=== PATIENT | male | born 1975 | race Caucasian/White ===

== ENCOUNTER 2017-09-28 21:57 | Emergency (ER) | payer BC ==
[2017-09-28 22:03] VITALS: BP 138/94
[2017-09-28] MEDS ORDERED: Tetracaine HCl/PF 0.5% 4 ML Bottle EYELF ONE (22:44)
[2017-09-28] MEDS ORDERED: Fluorescein 1 MG Ophth Strip EYELF ONE (22:45)
--- NOTE | 2017-09-28 22:54 | EDM.PDOC ---
ED HPI GENERAL MEDICAL PROBLEM - General Chief Complaint: Eye Problems Stated Complaint: piece of wood in the L eye Time Seen by Provider: 09/28/17 22:40 Source of Information: Reports: Patient History Limitations: Reports: No Limitations - History of Present Illness INITIAL COMMENTS - FREE TEXT/NARRATIVE: Siddhartha is a 42 year old male who presents to the ED with c/o foreign body in his left eye. He reports he was pulling tack for carpet when one slipped and hit him in the eye. He feels like he got a tiny piece of wood stuck in his eye. He reports he thought he saw something in the left lower corner of his eye. He denies any vision loss or changes in visual acuity. He reports his left eye is red and irritated. Denies any other issues. Onset: Today, Sudden Onset Date: 09/28/17 Onset Time: 21:30 Location: Reports: Other (left eye) Associated Symptoms: Reports: No Other Symptoms. Denies: Confusion, Chest Pain , Cough, cough w sputum, Diaphoresis, Fever/Chills, Headaches, Loss of Appetite , Malaise, Nausea/Vomiting, Rash, Seizure, Shortness of Breath, Syncope, Weakness Left Eye Pain Score (Numeric/FACES): 0 - Related Data Allergies Allergy/AdvReac Type Severity Reaction Status Date / Time acetaminophen Allergy Itching Verified 09/28/17 21:58 [From Darvocet-N] propoxyphene napsylate Allergy Itching Verified 09/28/17 21:58 [From Darvocet-N] venom-honey bee Allergy Anaphylactic Verified 09/28/17 21:58 [bee venom (honey bee)] Shock Sulfa (Sulfonamide AdvReac Stomach Verified 09/28/17 21:58 Antibiotics) Upset Home Meds: Home Meds Lisinopril 10 mg PO DAILY 03/14/15 [History] Sertraline HCl 50 mg PO DAILY 03/14/15 [History] Simvastatin 20 mg PO DAILY 03/14/15 [History] Past Medical History HEENT History: Reports: Hard of Hearing Cardiovascular History: Reports: High Cholesterol, Hypertension Respiratory History: Reports: None Gastrointestinal History: Reports: None Genitourinary History: Reports: None Musculoskeletal History: Reports: None Neurological History: Reports: None Psychiatric History: Reports: None Endocrine/Metabolic History: Reports: Diabetes, Type II, Hypothyroidism Immunologic History: Reports: None Oncologic (Cancer) History: Reports: None Dermatologic History: Reports: None - Past Surgical History Head Surgeries/Procedures: Reports: None HEENT Surgical History: Reports: Other (See Below) Other HEENT Surgeries/Procedures: tubes in the ears, cleft lip repair Cardiovascular Surgical History: Reports: None Respiratory Surgical History: Reports: None GI Surgical History: Reports: Cholecystectomy, Colonoscopy, Other (See Below) Other GI Surgeries/Procedures: spleenectomy Male Surgical History: Reports: None Endocrine Surgical History: Reports: Thyroidectomy Musculoskeletal Surgical History: Reports: Other (See Below) Other Musculoskeletal Surgeries/Procedures:: L ACL repair Oncologic Surgical History: Reports: None Dermatological Surgical History: Reports: None Social & Family History - Tobacco Use Smoking Status *Q: Never Smoker - Caffeine Use Caffeine Use: Reports: None ED ROS GENERAL - Review of Systems Review Of Systems: ROS reveals no pertinent complaints other than HPI. ED EXAM GENERAL W FULL EYE - Physical Exam Exam: See Below Exam Limited By: No Limitations General Appearance: Alert, WD/WN, No Apparent Distress Eye Exam: Left Eye: Conjunctival Injection, Corneal Abrasion, Bilateral Eye: EOMI, PERRL Eyelids: Bilateral: Normal Appearance Conjunctiva & Sclera: Right: Normal Appearance, Left: Conjunctival Edema, Injected Cornea Exam: Right: Normal Appearance, Left: Corneal Abrasion, Examined with Flourescein Extraocular Movements: Bilateral: Intact Pupils: Normal Accommodation Pupillary Size: Bilateral: 4 mm Pupillary Reaction: Bilateral: Brisk Anterior Chamber: Bilateral: Normal Appearance Posterior Chamber: Bilateral: Normal Funduscopic Psychiatric: Normal Affect, Normal Mood Course - Vital Signs Last Recorded V/S: Last Vital Signs Temp 98.4 F 09/28/17 22:00 Pulse 80 09/28/17 22:00 Resp 18 09/28/17 22:00 BP 138/94 H 09/28/17 22:00 Pulse Ox - Orders/Labs/Meds Meds: Medications Discontinued Medications Generic Name Dose Route Start Last Admin Trade Name Freq PRN Reason Stop Dose Admin Fluorescein Sodium 1 mg 09/28/17 22:45 Ful-Stephanie EYELF 09/28/17 22:46 ONETIME ONE Tetracaine HCl 1 ml 09/28/17 22:44 Tetracaine 0.5% Steri-Unit Anastacia EYELF 09/28/17 22:45 ASDIRECTED ONE - Re-Assessments/Exams Free Text/Narrative Re-Assessment/Exam: Tetracycline drop and Ful Glow strip applied to eye. Visualized under blue light. No obvious foreign body visualized. Does have erythema and swelling to left lateral conjunctiva. Patient tolerated well. Departure - Departure Time of Disposition: 22:49 Disposition: Home, Self-Care 01 Condition: Good Clinical Impression: Corneal abrasion Qualifiers: Encounter type: initial encounter Laterality: left Qualified Code(s): S05.02XA - Injury of conjunctiva and corneal abrasion without foreign body, left eye, initial encounter - Discharge Information Instructions: Eye Foreign Body, [id number], Corneal Abrasion, [id number] Referrals: Ishan Pruitt MD [Primary Care Provider] - Additional Instructions: Eye drops every 8 hours Do not itch/rub eye as this can worsen abrasion Safety goggles while working Follow up with magnetic tape winder Sunday
[2017-09-29] MEDS ORDERED: Gentamicin 0.3% Ophth Soln 5 ML Bottle EYELF SCH (08:00)
[2017-09-29] MEDS ORDERED: Bacitracin/Neomycin/Polymyxin B Ophth Oint 3.5 GM Tube EYELF SCH ×2 (08:00)
== END 2017-09-28 23:03 | disposition home or self-care (01) ==
LOC: CC.ED 21:57
DX: S05.02XA Injury of conjunctiva and corneal abrasion without foreign body, left eye, initial encounter (principal); E78.00 Pure hypercholesterolemia, unspecified; I10 Essential (primary) hypertension; E11.9 Type 2 diabetes mellitus without complications; E03.9 Hypothyroidism, unspecified; Z88.6 Allergy status to analgesic agent; Z88.2 Allergy status to sulfonamides; Z91.030 Bee allergy status; Z79.899 Other long term (current) drug therapy; W22.8XXA Striking against or struck by other objects, initial encounter
CPT/HCPCS: 99282

== ENCOUNTER 2018-07-15 14:40 | Observation (INO) | payer BC ==
[2018-07-15 15:11] LABS: CHLORIDE,CL 102 mEq/L (98-106); SODIUM,NA 140 mEq/L (136-145)
[2018-07-15] MEDS ORDERED: Ondansetron 4 MG/2 ML SDV IV PRN (15:39)
[2018-07-15] MEDS ORDERED: Ondansetron 8 MG in Sodium Chloride 0.9% 50 ML IV PRN (15:59)
[2018-07-15] MEDS ORDERED: Ibuprofen 200 MG Tab PO PRN (16:31)
[2018-07-15] MEDS: Acetaminophen 325 MG Tab PO PRN ×2 (16:36→22:31)
[2018-07-15] MEDS: Pantoprazole 40 MG Vial IVPUSH SCH (16:37)
[2018-07-15] MEDS: Enoxaparin 40 MG/0.4 ML Syringe SUBCUT SCH (16:37)
[2018-07-15] MEDS: Sodium Chloride 0.9% 1,000 ML IV SCH ×2 (16:38→20:04)
[2018-07-15] MEDS: Ibuprofen 200 MG Tab PO PRN (20:02)
[2018-07-15] MEDS: Levofloxacin/Dextrose 5%-Water 500 MG in Premix Bag 1 BAG IV SCH (23:45)
[2018-07-16] MEDS: Pantoprazole 40 MG Vial IVPUSH SCH ×2 (04:14→15:38)
[2018-07-16] MEDS: Sodium Chloride 0.9% 1,000 ML IV SCH ×3 (05:43→21:40)
[2018-07-16] MEDS ORDERED: SERTRALINE HCL 50 MG PO SCH (08:00)
[2018-07-16 09:02] LABS: CHLORIDE,CL 107 mEq/L (98-106); SODIUM,NA 142 mEq/L (136-145)
[2018-07-16] MEDS: LEVOTHYROXINE SODIUM 200 MCG PO SCH (09:33)
[2018-07-16] MEDS: LEVOTHYROXINE SODIUM 25 MCG PO SCH (09:34)
[2018-07-16] MEDS: Enoxaparin 40 MG/0.4 ML Syringe SUBCUT SCH (15:38)
[2018-07-16] MEDS: Ibuprofen 200 MG Tab PO PRN (15:47)
--- NOTE | 2018-07-16 19:56 | PCM.PN ---
- General Info Date of Service: 07/16/18 Admission Dx/Problem (Free Text): Fever Functional Status: Reports: Pain Controlled, Tolerating Diet, Ambulating - Review of Systems General: Reports: Fever, Weakness, Fatigue, Malaise (Does feel much less achy today) HEENT: Denies: Ear Pain, Sinus Congestion, Sore Throat Pulmonary: Denies: Shortness of Breath, Cough Cardiovascular: Denies: Chest Pain, Edema, Lightheadedness Gastrointestinal: Reports: Abdominal Pain, Diarrhea (less frequent stools). Denies: Nausea, Vomiting Genitourinary: Reports: No Symptoms Musculoskeletal: Reports: No Symptoms Skin: Reports: No Symptoms Neurological: Reports: No Symptoms - Patient Data Vitals - Most Recent: Last Vital Signs Temp 100.3 F 07/16/18 16:47 Pulse 80 07/16/18 15:54 Resp 20 07/16/18 15:54 BP 143/80 H 07/16/18 15:54 Pulse Ox 96 07/16/18 15:54 Weight - Most Recent: 282 lb 6.4 oz I&O - Last 24 Hours: Intake & Output 07/16/18 07/16/18 07/16/18 06:59 14:59 22:59 Intake Total 2200 983 900 Output Total 750 1050 Balance 1450 983 -150 Lab Results Last 24 Hours: Laboratory Results - last 24 hr 07/15/18 07/16/18 07/16/18 Range/Units 21:16 06:53 07:00 WBC (5.0-10.0) 10^3/uL RBC (4.50-6.00) 10^6/uL Hgb (14.0-18.0) g/dL Hct (40.0-54.0) % MCV (82.0-94.0) fL MCH (27.0-32.0) pg MCHC (33.0-38.0) g/dL RDW Coeff of Darshana (11.0-15.0) % Plt Count (150-400) 10^3/uL Neut % (Auto) (35-85) % Lymph % (Auto) (10-55) % [place] % (Auto) (0-16) % Eos % (Auto) (0-5) % Baso % (Auto) (0-3) % Neut # (Auto) (1.80-7.00) 10^3/uL Lymph # (Auto) (1.00-4.80) 10^3/uL [place] # (Auto) (0.00-0.80) 10^3/uL Eos # (Auto) (0.00-0.45) 10^3/uL Baso # (Auto) 10^3/uL Sodium 142 (136-145) mEq/L Potassium 3.7 (3.5-5.0) mEq/L Chloride 107 H (98-106) mEq/L Carbon Dioxide 28 (21-32) mmol/L BUN 14 (7-18) mg/dL Creatinine 0.9 (0.7-1.3) mg/dL Est Cr Clr Drug Dosing 111.53 mL/min Estimated GFR (MDRD) > 60 (>=60) mL/min Glucose 110 H (75-99) mg/dL POC Glucose 92 (75-105) mg/dl Calcium 8.0 L (8.4-10.1) mg/dL Troponin I < 0.017 (0.00-0.06) ng/mL C-Reactive Protein 4.9 H (0.2-0.8) mg/dL 07/16/18 07/16/18 07/16/18 Range/Units 07:40 08:50 11:34 WBC 6.0 (5.0-10.0) 10^3/uL RBC 4.54 (4.50-6.00) 10^6/uL Hgb 13.3 L (14.0-18.0) g/dL Hct 41.2 (40.0-54.0) % MCV 90.7 (82.0-94.0) fL MCH 29.3 (27.0-32.0) pg MCHC 32.3 L (33.0-38.0) g/dL RDW Coeff of Darshana 13.7 (11.0-15.0) % Plt Count 215 (150-400) 10^3/uL Neut % (Auto) 36.9 (35-85) % Lymph % (Auto) 46.3 (10-55) % [place] % (Auto) 15.7 (0-16) % Eos % (Auto) 0.8 (0-5) % Baso % (Auto) 0.3 (0-3) % Neut # (Auto) 2.21 (1.80-7.00) 10^3/uL Lymph # (Auto) 2.78 (1.00-4.80) 10^3/uL [place] # (Auto) 0.94 H (0.00-0.80) 10^3/uL Eos # (Auto) 0.05 (0.00-0.45) 10^3/uL Baso # (Auto) 0.02 10^3/uL Sodium (136-145) mEq/L Potassium (3.5-5.0) mEq/L Chloride (98-106) mEq/L Carbon Dioxide (21-32) mmol/L BUN (7-18) mg/dL Creatinine (0.7-1.3) mg/dL Est Cr Clr Drug Dosing mL/min Estimated GFR (MDRD) (>=60) mL/min Glucose (75-99) mg/dL POC Glucose 109 H 125 H (75-105) mg/dl Calcium (8.4-10.1) mg/dL Troponin I (0.00-0.06) ng/mL C-Reactive Protein (0.2-0.8) mg/dL 07/16/18 Range/Units 17:12 WBC (5.0-10.0) 10^3/uL RBC (4.50-6.00) 10^6/uL Hgb (14.0-18.0) g/dL Hct (40.0-54.0) % MCV (82.0-94.0) fL MCH (27.0-32.0) pg MCHC (33.0-38.0) g/dL RDW Coeff of Darshana (11.0-15.0) % Plt Count (150-400) 10^3/uL Neut % (Auto) (35-85) % Lymph % (Auto) (10-55) % [place] % (Auto) (0-16) % Eos % (Auto) (0-5) % Baso % (Auto) (0-3) % Neut # (Auto) (1.80-7.00) 10^3/uL Lymph # (Auto) (1.00-4.80) 10^3/uL [place] # (Auto) (0.00-0.80) 10^3/uL Eos # (Auto) (0.00-0.45) 10^3/uL Baso # (Auto) 10^3/uL Sodium (136-145) mEq/L Potassium (3.5-5.0) mEq/L Chloride (98-106) mEq/L Carbon Dioxide (21-32) mmol/L BUN (7-18) mg/dL Creatinine (0.7-1.3) mg/dL Est Cr Clr Drug Dosing mL/min Estimated GFR (MDRD) (>=60) mL/min Glucose (75-99) mg/dL POC Glucose 138 H (75-105) mg/dl Calcium (8.4-10.1) mg/dL Troponin I (0.00-0.06) ng/mL C-Reactive Protein (0.2-0.8) mg/dL Deepak Results Last 24 Hours: Microbiology 07/15/18 15:57 Aerobic Blood Culture - Preliminary Blood - Venous - Lab Draw NO GROWTH AFTER 1 DAY Anaerobic Blood Culture - Preliminary NO GROWTH AFTER 1 DAY 07/15/18 15:52 Aerobic Blood Culture - Preliminary Blood - Venous NO GROWTH AFTER 1 DAY Anaerobic Blood Culture - Preliminary NO GROWTH AFTER 1 DAY 07/16/18 04:15 C. difficile DNA Amplification - Final Stool / Feces NEGATIVE CDIFF BY DNA 07/15/18 16:37 Influenza Type A Antigen Screen - Final Nasopharyngeal Swab NEGATIVE INFLUENZA A VIRUS AG Influenza Type B Antigen Screen - Final NEGATIVE INFLUENZA B VIRUS AG Med Orders - Current: Current Medications Acetaminophen (Tylenol) 650 mg PO Q4H PRN PRN Reason: Fever Last Admin: 07/15/18 22:31 Dose: 650 mg Enoxaparin Sodium (Lovenox) 40 mg SUBCUT Q24H [facility] Last Admin: 07/16/18 15:38 Dose: 40 mg Sodium Chloride (Normal Saline) 1,000 mls @ 125 mls/hr IV ASDIRECTED [facility] Last Admin: 07/16/18 13:35 Dose: 125 mls/hr Ondansetron HCl 8 mg/ Sodium (Chloride) 54 mls @ 100 mls/hr IV Q6H PRN PRN Reason: NAUSEA/VOMITING Levofloxacin/Dextrose 500 mg/ (Premix) 100 mls @ 100 mls/hr IV Q24H [facility] Last Admin: 07/15/18 23:45 Dose: 100 mls/hr Ibuprofen (Motrin) 400 mg PO Q4H PRN PRN Reason: PAIN/FEVER Last Admin: 07/16/18 15:47 Dose: 400 mg Non-Formulary Medication (Sertraline Hcl [Sertraline Hcl]) 50 mg PO DAILY [facility] Levothyroxine Sodium [Synthroid] 25mcg * * Own Med 25 mcg PO DAILY [facility] Last Admin: 07/16/18 09:34 Dose: 25 mcg Levothyroxine Sodium 200mcg Own Med * * 200 mcg PO DAILY [facility] Last Admin: 07/16/18 09:33 Dose: 200 mcg Pantoprazole Sodium (Protonix Iv) 40 mg IVPUSH Q12H [facility] Last Admin: 07/16/18 15:38 Dose: 40 mg Discontinued Medications Ibuprofen (Motrin) 200 mg PO ASDIRECTED PRN PRN Reason: PAIN/FEVER Ondansetron HCl (Zofran) 8 mg IV Q6H PRN PRN Reason: Nausea/Vomiting - Exam General: Alert, Oriented HEENT: Mucous Membr. Moist/[place] Neck: Supple Lungs: Clear to Auscultation, Normal Respiratory Effort Cardiovascular: Regular Rate, Regular Rhythm GI/Abdominal Exam: Normal Bowel Sounds, Soft, Non-Tender Extremities: Normal Inspection, No Pedal Edema Skin: Warm, Dry Neurological: No New Focal Deficit - Problem List & Annotations (1) Fever SNOMED Code(s): 442427225 Code(s): R50.9 - FEVER, UNSPECIFIED Status: Acute Priority: High Current Visit: Yes (2) Dehydration SNOMED Code(s): 28263491 Code(s): E86.0 - DEHYDRATION Status: Acute Priority: High Current Visit : Yes - Problem List Review Problem List Initiated/Reviewed/Updated: Yes - Assessment Assessment:: Fever Dehydration Diarrhea - Plan Plan:: Patient is feeling better today. Diarrhea has slowed down, occasional loose stool yet. Feels less achy today, temps down to low grade at 99.5. Chest xray negative. UA negative. Influenza screens negative. C diff negative. No obvious source of fever at this point. WBC is normal today at 6.0, CRP increased to 4.5. Will continue with IV fluids, monitor temp. Levaquin IV. Possible discharge home tomorrow if remains afebrile.
[2018-07-16] MEDS: Acetaminophen 325 MG Tab PO PRN (20:10)
[2018-07-16] MEDS: Levofloxacin/Dextrose 5%-Water 500 MG in Premix Bag 1 BAG IV SCH (23:33)
[2018-07-17] MEDS: Pantoprazole 40 MG Vial IVPUSH SCH (03:49)
[2018-07-17] MEDS: Sodium Chloride 0.9% 1,000 ML IV SCH (06:31)
[2018-07-17 07:44] VITALS: BP 124/82
[2018-07-17] MEDS: LEVOTHYROXINE SODIUM 200 MCG PO SCH (07:46)
[2018-07-17] MEDS: LEVOTHYROXINE SODIUM 25 MCG PO SCH (07:46)
[2018-07-17 08:37] LABS: CHLORIDE,CL 106 mEq/L (98-106); SODIUM,NA 141 mEq/L (136-145)
--- NOTE | 2018-07-18 09:29 | PCM.DCSUM1 ---
Discharge Summary - Hospital Course Free Text/Narrative:: Patient presented to clinic to see Dr. Pruitt due to nausea, diarrhea and fever. Had start Bydureon on Sunday and initially thought that the diarrhea could be related to that. Rested over much of the weekend, was achy and didn't seem to improve. Started running fever on day of admit, up to 103 at clinic. Patient had influenza 2 weeks ago but had recovered from that. Labs were done that showed a WBC of 12.2. CRP of 4.9. Urine clear. Chest xray clear. No obvious source of infection. Admitted and started on Levaquin. Collect stool studies. Start IV fluids for dehydration Diagnosis: Stroke: No Modified [place] Scale: No Symptoms at All Modified [place] Scale Score: 0 - Discharge Data Discharge Date: 07/17/18 Discharge Disposition: Home, Self-Care 01 Condition: Good - Discharge Diagnosis/Problem(s) (1) Fever SNOMED Code(s): 519857056 ICD Code: R50.9 - FEVER, UNSPECIFIED Status: Acute Priority: High (2) Dehydration SNOMED Code(s): 79814385 ICD Code: E86.0 - DEHYDRATION Status: Acute Priority: High - Patient Summary/Data Complications: none Hospital Course: Patient feeling better today. Last fever of 100.3 yesterday. Still has loose stools, less frequent than on admit. Stool for c diff negative. Rotovirus negative. Still awaiting stool culture as of yet. Labs have improved, WBC now down to 6.6, CRP 2.7. No obvious source of infection found, likely related to a virus. Abdomen is soft, nontender now. Will hold Bydureon until patient sees Dr. Pruitt in follow up of the hospital stay, return to taking his Glipizide as prior. Resume blood pressure meds. - Patient Instructions Diet: Usual Diet as Tolerated Activity: As Tolerated - Discharge Plan *PRESCRIPTION DRUG MONITORING PROGRAM REVIEWED*: No *COPY OF PRESCRIPTION DRUG MONITORING REPORT IN PATIENT ARIELLE: No Prescriptions/Med Rec: Levofloxacin [Levaquin] 500 mg PO DAILY #7 tablet Home Medications: Home Meds Lisinopril 10 mg PO DAILY 03/14/15 [History] Ibuprofen [Advil] 200 mg PO ASDIRECTED PRN 07/15/18 [History] Levothyroxine Sodium [Synthroid] 25 mcg PO DAILY 07/15/18 [History] Levothyroxine Sodium [Synthroid] 200 mcg PO DAILY 07/15/18 [History] Lovastatin 20 mg PO BEDTIME 07/15/18 [History] glipiZIDE [Glipizide ER] 10 mg PO BID 07/15/18 [History] Levofloxacin [Levaquin] 500 mg PO DAILY #7 tablet 07/17/18 [Rx] Referrals: Ishan Pruitt MD [Primary Care Provider] - (Follow up with Dr. Pruitt on Sunday ) - Discharge Summary/Plan Comment DC Time >30 min.: No Discharge Summary/Plan Comment: Discharge home Continue Levaquin 500 mg daily for 7 days Hold Bydureon for now Continue Glipizide until hospital follow up with visit with Dr. Pruitt next week. - General Info Date of Service: 07/17/18 Admission Dx/Problem (Free Text: Fever Functional Status: Reports: Pain Controlled, Tolerating Diet, Ambulating - Review of Systems General: Reports: Weakness, Fatigue HEENT: Reports: No Symptoms Pulmonary: Reports: No Symptoms Cardiovascular: Reports: No Symptoms Gastrointestinal: Reports: Diarrhea, Nausea. Denies: Abdominal Pain Genitourinary: Reports: No Symptoms Musculoskeletal: Reports: No Symptoms Skin: Reports: No Symptoms Neurological: Reports: No Symptoms - Patient Data Vitals - Most Recent: Last Vital Signs Temp 98.7 F 07/17/18 07:43 Pulse 87 07/17/18 07:43 Resp 18 07/17/18 07:43 BP 124/82 07/17/18 07:43 Pulse Ox 96 07/17/18 07:43 Weight - Most Recent: 280 lb 14.4 oz GABI Results - Last 24 hrs: Microbiology 07/15/18 15:57 Aerobic Blood Culture - Preliminary Blood - Venous - Lab Draw NO GROWTH AFTER 2 DAYS Anaerobic Blood Culture - Preliminary NO GROWTH AFTER 2 DAYS 07/15/18 15:52 Aerobic Blood Culture - Preliminary Blood - Venous NO GROWTH AFTER 2 DAYS Anaerobic Blood Culture - Preliminary NO GROWTH AFTER 2 DAYS 07/16/18 04:15 Rotavirus Antigen - Final Stool / Feces Med Orders - Current: Current Medications Discontinued Medications Acetaminophen (Tylenol) 650 mg PO Q4H PRN PRN Reason: Fever Last Admin: 07/16/18 20:10 Dose: 650 mg Enoxaparin Sodium (Lovenox) 40 mg SUBCUT Q24H [facility] Last Admin: 07/16/18 15:38 Dose: 40 mg Sodium Chloride (Normal Saline) 1,000 mls @ 125 mls/hr IV ASDIRECTED [facility] Last Admin: 07/17/18 06:31 Dose: 125 mls/hr Ondansetron HCl 8 mg/ Sodium (Chloride) 54 mls @ 100 mls/hr IV Q6H PRN PRN Reason: NAUSEA/VOMITING Levofloxacin/Dextrose 500 mg/ (Premix) 100 mls @ 100 mls/hr IV Q24H [facility] Last Admin: 07/16/18 23:33 Dose: 100 mls/hr Ibuprofen (Motrin) 200 mg PO ASDIRECTED PRN PRN Reason: PAIN/FEVER Ibuprofen (Motrin) 400 mg PO Q4H PRN PRN Reason: PAIN/FEVER Last Admin: 07/16/18 15:47 Dose: 400 mg Non-Formulary Medication (Sertraline Hcl [Sertraline Hcl]) 50 mg PO DAILY [facility] Levothyroxine Sodium [Synthroid] 25mcg * * Own Med 25 mcg PO DAILY [facility] Last Admin: 07/17/18 07:46 Dose: 25 mcg Levothyroxine Sodium 200mcg Own Med * * 200 mcg PO DAILY [facility] Last Admin: 07/17/18 07:46 Dose: 200 mcg Ondansetron HCl (Zofran) 8 mg IV Q6H PRN PRN Reason: Nausea/Vomiting Pantoprazole Sodium (Protonix Iv) 40 mg IVPUSH Q12H [facility] Last Admin: 07/17/18 03:49 Dose: 40 mg - Exam General: Reports: Alert, Oriented HEENT: Reports: Mucous Membr. Moist/[place] Neck: Reports: Supple Lungs: Reports: Clear to Auscultation, Normal Respiratory Effort Cardiovascular: Reports: Regular Rate, Regular Rhythm GI/Abdominal Exam: Normal Bowel Sounds, Soft, Non-Tender Extremities: Normal Inspection, No Pedal Edema Skin: Reports: Warm, Dry Neurological: Reports: No New Focal Deficit
== END 2018-07-17 16:45 | disposition home or self-care (01) ==
LOC: CC.FCMC 14:40 → UNDOADMOB 15:22 → CC.MS 15:22
PROVIDERS: ADMIT Family Medicine; ATTEND Family Medicine
DX: R19.7 Diarrhea, unspecified (principal); E86.0 Dehydration; I10 Essential (primary) hypertension; E11.9 Type 2 diabetes mellitus without complications; E78.5 Hyperlipidemia, unspecified; Z79.899 Other long term (current) drug therapy; Z88.2 Allergy status to sulfonamides; Z88.5 Allergy status to narcotic agent; Z91.030 Bee allergy status
CPT/HCPCS: 36415; 71046; 80048; 80053; 81001; 82150; 82962; 84443; 84484; 85025; 86140; 87040; 87045; 87046; 87425; 87493; 87804; 93005; 96361; 96365; 96366; 96372; 96375; 96376; A9270; C9113; G0378; J1650; J1956; J7030